=== PATIENT | male | born 1960 | race Asian ===

== ENCOUNTER 2021-03-07 21:15 | Inpatient (IN) | payer OTHER ==
[~2021-03-07] VITALS: Ht 175.3 cm; Wt 77.0 kg
[2021-03-07] MEDS ORDERED: CloNIDine HCL 0.2 MG TABLET PO ONE (22:30)
[2021-03-07 22:38] LABS: BASOPHILS % (AUTO) 0.4 % (0.0-2.0); EOSINOPHILS % (AUTO) 0.6 % (1.0-6.0); HEMATOCRIT 37.9 % (41-53); HEMOGLOBIN 12.4 g/dL (13.5-17.5); LYMPHOCYTES # (AUTO) 1.3 K/uL (1.0-4.8); LYMPHOCYTES % (AUTO) 13.5 % (22.0-44.0); MEAN CORPUSCULAR HEMOGLOBIN 28.4 pg (26.0-34.0); MEAN CORPUSCULAR HGB CONC 32.6 G/dL (31.0-37.0); MEAN CORPUSCULAR VOLUME 87 fL (80-100); MONOCYTES # (AUTO) 0.7 K/uL (0.1-1.0); MONOCYTES % (AUTO) 7.1 % (2.0-9.0); NEUTROPHILS # (AUTO) 7.7 K/uL (1.8-7.7); NEUTROPHILS % (AUTO) 78.4 % (40.0-70.0); PLATELET COUNT (AUTO) 381 K/uL (150-450); RED BLOOD CELL COUNT(AUTO) 4.35 MIL/uL (4.50-5.90); RED CELL DISTRIBUTION WIDTH 14.1 % (11.5-14.5)
[2021-03-07 22:39] LABS: COVID AG,FIA SOURCE NASOPHARYNGEAL
[2021-03-07 22:54] LABS: ANION GAP 8 mmol/L (8-16); CALCIUM, TOTAL 8.7 mg/dL (8.8-10.5); CARBON DIOXIDE 27 mmol/L (22-29); CHLORIDE 104 mmol/L (98-107); CREATININE 1.06 mg/dL (0.60-1.30); GLOMERULAR FILTR. RATE CALC > 60 mL/min (>60); GLUCOSE,RANDOM 95 mg/dL (70-110); POTASSIUM 4.4 mmol/L (3.5-5.1); SODIUM SERUM 139 mmol/L (136-145); UREA NITROGEN, BLOOD 18 mg/dL (7-18)
[2021-03-07 22:59] LABS: ALANINE AMINOTRANSFERASE 88 U/L (12-78); ALBUMIN 2.7 g/dL (3.4-5.0); ALKALINE PHOSPHATASE 89 U/L (46-116); ASPARTATE AMINOTRANSFERASE 68 U/L (15-37); BILIRUBIN,TOTAL 0.4 mg/dL (0.1-1.0); TOTAL PROTEIN, SERUM 8.7 g/dL (6.4-8.2)
[2021-03-08] VITALS (7 sets, daily range): BP systolic 105–138; BP diastolic 51–94
[2021-03-08] MEDS ORDERED: CARVEDILOL 3.125 MG TABLET PO SCH (00:30)
[2021-03-08] MEDS ORDERED: ATORVASTATIN CALCIUM 40 MG TABLET PO ONE (00:30)
[2021-03-08] MEDS ORDERED: FUROSEMIDE 20 MG/2 ML VIAL IVP ONE (00:30)
[2021-03-08] MEDS ORDERED: ASPIRIN 81 MG CHEWABLE TABLET PO ONE (00:30)
[2021-03-08] MEDS ORDERED: ONDANSETRON HCL 4 MG/2 ML VIAL IVP PRN (00:30)
[2021-03-08 05:41] LABS: AMPHET/METH SCREEN,URINE NEGATIVE (NEGATIVE); BARBITURATE SCREEN, URINE NEGATIVE (NEGATIVE); BENZODIAZEPINES SCREEN,URINE POSITIVE (NEGATIVE); CANNABINOID SCREEN,URINE NEGATIVE (NEGATIVE); COCAINE SCREEN,URINE NEGATIVE (NEGATIVE); METHADONE SCREEN, URINE NEGATIVE (NEGATIVE); OPIATE SCREEN,URINE NEGATIVE (NEGATIVE)
[2021-03-08 05:42] LABS: PHENCYCLIDINE SCREEN,URINE NEGATIVE (NEGATIVE)
[2021-03-08] MEDS: ASPIRIN 81 MG CHEWABLE TABLET PO SCH (08:08)
[2021-03-08] MEDS: ATORVASTATIN CALCIUM 20 MG TABLET PO SCH (08:08)
[2021-03-08] MEDS: HEPARIN SODIUM,PORCINE 5,000 UNITS/ML VIAL SQ SCH ×3 (08:08→23:38)
[2021-03-08] MEDS: CARVEDILOL 6.25 MG TABLET PO SCH ×2 (11:30→20:24)
[2021-03-08] MEDS: GABAPENTIN 300 MG CAPSULE PO SCH (21:55)
[2021-03-09 04:59] VITALS: BP 97/60
[2021-03-09 07:42] VITALS: BP 150/78
[2021-03-09] MEDS: HEPARIN SODIUM,PORCINE 5,000 UNITS/ML VIAL SQ SCH ×3 (08:13→23:24)
[2021-03-09] MEDS: ATORVASTATIN CALCIUM 20 MG TABLET PO SCH (08:14)
[2021-03-09] MEDS: GABAPENTIN 300 MG CAPSULE PO SCH (08:14)
[2021-03-09] MEDS: CARVEDILOL 6.25 MG TABLET PO SCH ×2 (08:14→20:32)
[2021-03-09] MEDS: ASPIRIN 81 MG CHEWABLE TABLET PO SCH (08:14)
[2021-03-09 10:29] VITALS: BP 142/82
[2021-03-09 15:29] VITALS: BP 148/78
[2021-03-09 16:21] LABS: EOSINOPHILS % (AUTO) 1.9 % (1.0-6.0); HEMATOCRIT 39.8 % (41-53); LYMPHOCYTES # (AUTO) 1.4 K/uL (1.0-4.8); LYMPHOCYTES % (AUTO) 17.8 % (22.0-44.0); MEAN CORPUSCULAR HEMOGLOBIN 28.5 pg (26.0-34.0); MEAN CORPUSCULAR HGB CONC 32.6 G/dL (31.0-37.0); MEAN CORPUSCULAR VOLUME 87 fL (80-100); MONOCYTES # (AUTO) 0.7 K/uL (0.1-1.0); MONOCYTES % (AUTO) 8.7 % (2.0-9.0); NEUTROPHILS # (AUTO) 5.7 K/uL (1.8-7.7); NEUTROPHILS % (AUTO) 70.6 % (40.0-70.0); PLATELET COUNT (AUTO) 374 K/uL (150-450); RED BLOOD CELL COUNT(AUTO) 4.56 MIL/uL (4.50-5.90); RED CELL DISTRIBUTION WIDTH 14.3 % (11.5-14.5)
[2021-03-09 16:32] LABS: ANION GAP -2 mmol/L (8-16); CALCIUM, TOTAL 8.8 mg/dL (8.8-10.5); CARBON DIOXIDE 25 mmol/L (22-29); CHLORIDE 106 mmol/L (98-107); GLOMERULAR FILTR. RATE CALC > 60 mL/min (>60); GLUCOSE,RANDOM 136 mg/dL (70-110); POTASSIUM 4.1 mmol/L (3.5-5.1); SODIUM SERUM 129 mmol/L (136-145); UREA NITROGEN, BLOOD 22 mg/dL (7-18)
[2021-03-09] MEDS: LISINOPRIL 5 MG TABLET PO SCH (16:32)
[2021-03-09] MEDS: FUROSEMIDE 20 MG/2 ML VIAL IVP SCH ×2 (16:32→20:32)
[2021-03-09 19:38] VITALS: BP 137/89
[2021-03-09] MEDS: ACETAMINOPHEN 325 MG TABLET PO PRN (20:32)
[2021-03-09] MEDS: SPIRONOLACTONE 25 MG TABLET PO SCH (20:32)
[2021-03-09 23:45] VITALS: BP 118/70
[2021-03-10 04:41] VITALS: BP 137/92
[2021-03-10 05:56] LABS: BASOPHILS % (AUTO) 0.8 % (0.0-2.0); EOSINOPHILS % (AUTO) 2.1 % (1.0-6.0); HEMATOCRIT 39.6 % (41-53); HEMOGLOBIN 12.6 g/dL (13.5-17.5); LYMPHOCYTES # (AUTO) 1.9 K/uL (1.0-4.8); LYMPHOCYTES % (AUTO) 22.4 % (22.0-44.0); MEAN CORPUSCULAR HGB CONC 31.9 G/dL (31.0-37.0); MEAN CORPUSCULAR VOLUME 88 fL (80-100); MONOCYTES # (AUTO) 0.7 K/uL (0.1-1.0); MONOCYTES % (AUTO) 8.1 % (2.0-9.0); NEUTROPHILS # (AUTO) 5.7 K/uL (1.8-7.7); NEUTROPHILS % (AUTO) 66.6 % (40.0-70.0); PLATELET COUNT (AUTO) 375 K/uL (150-450); RED BLOOD CELL COUNT(AUTO) 4.51 MIL/uL (4.50-5.90); RED CELL DISTRIBUTION WIDTH 14.1 % (11.5-14.5)
[2021-03-10 06:22] LABS: ANION GAP 2 mmol/L (8-16); CALCIUM, TOTAL 8.5 mg/dL (8.8-10.5); CARBON DIOXIDE 27 mmol/L (22-29); CHLORIDE 103 mmol/L (98-107); GLOMERULAR FILTR. RATE CALC > 60 mL/min (>60); GLUCOSE,RANDOM 92 mg/dL (70-110); POTASSIUM 3.7 mmol/L (3.5-5.1); SODIUM SERUM 132 mmol/L (136-145); UREA NITROGEN, BLOOD 19 mg/dL (7-18)
[2021-03-10 07:18] VITALS: BP 148/86
[2021-03-10] MEDS: CARVEDILOL 6.25 MG TABLET PO SCH ×2 (07:53→20:31)
[2021-03-10] MEDS: ATORVASTATIN CALCIUM 20 MG TABLET PO SCH (07:53)
[2021-03-10] MEDS: GABAPENTIN 300 MG CAPSULE PO SCH (07:53)
[2021-03-10] MEDS: LISINOPRIL 5 MG TABLET PO SCH (07:53)
[2021-03-10] MEDS: ASPIRIN 81 MG CHEWABLE TABLET PO SCH (07:54)
[2021-03-10] MEDS: HEPARIN SODIUM,PORCINE 5,000 UNITS/ML VIAL SQ SCH ×3 (07:54→23:16)
[2021-03-10] MEDS: SPIRONOLACTONE 25 MG TABLET PO SCH ×2 (07:54→20:35)
[2021-03-10] MEDS: FUROSEMIDE 20 MG/2 ML VIAL IVP SCH ×2 (07:54→20:35)
[2021-03-10 11:39] VITALS: BP 139/82
[2021-03-10 16:20] VITALS: BP 142/90
[2021-03-10 19:51] VITALS: BP 125/76
[2021-03-10] MEDS: ACETAMINOPHEN 325 MG TABLET PO PRN (20:33)
[2021-03-10] MEDS: MELATONIN 3 MG TABLET PO PRN (22:02)
[2021-03-10 23:38] VITALS: BP 121/68
[2021-03-11 07:40] VITALS: BP 127/72
[2021-03-11] MEDS: ATORVASTATIN CALCIUM 20 MG TABLET PO SCH (08:03)
[2021-03-11] MEDS: ASPIRIN 81 MG CHEWABLE TABLET PO SCH (08:03)
[2021-03-11] MEDS: HEPARIN SODIUM,PORCINE 5,000 UNITS/ML VIAL SQ SCH ×2 (08:03→17:15)
[2021-03-11] MEDS: LISINOPRIL 5 MG TABLET PO SCH (08:03)
[2021-03-11] MEDS: FUROSEMIDE 20 MG/2 ML VIAL IVP SCH ×2 (08:03→20:37)
[2021-03-11] MEDS: GABAPENTIN 300 MG CAPSULE PO SCH (08:05)
[2021-03-11] MEDS: SPIRONOLACTONE 25 MG TABLET PO SCH ×2 (08:05→20:38)
[2021-03-11] MEDS: CARVEDILOL 6.25 MG TABLET PO SCH ×2 (08:06→20:38)
[2021-03-11] MEDS ORDERED: BUPRENORPHINE HCL/NALOXONE HCL 2-0.5 MG SUBLINGUAL TABLET SL SCH (09:45)
[2021-03-11 11:04] VITALS: BP 149/68
[2021-03-11 15:10] VITALS: BP 121/67
[2021-03-11 19:51] VITALS: BP 145/82
[2021-03-11] MEDS: MELATONIN 3 MG TABLET PO PRN (22:38)
[2021-03-11 23:33] VITALS: BP 116/65
[2021-03-12] MEDS: HEPARIN SODIUM,PORCINE 5,000 UNITS/ML VIAL SQ SCH ×3 (00:12→16:46)
[2021-03-12 05:01] VITALS: BP 138/88
[2021-03-12 07:14] VITALS: BP 143/88
[2021-03-12 08:56] VITALS: BP 143/88
[2021-03-12] MEDS: GABAPENTIN 300 MG CAPSULE PO SCH (09:00)
[2021-03-12] MEDS: FUROSEMIDE 20 MG/2 ML VIAL IVP SCH ×2 (10:32→20:06)
[2021-03-12] MEDS: SPIRONOLACTONE 25 MG TABLET PO SCH ×2 (10:35→20:06)
[2021-03-12] MEDS: ASPIRIN 81 MG CHEWABLE TABLET PO SCH (10:36)
[2021-03-12] MEDS: CARVEDILOL 6.25 MG TABLET PO SCH ×2 (10:36→20:05)
[2021-03-12] MEDS: ATORVASTATIN CALCIUM 20 MG TABLET PO SCH (10:37)
[2021-03-12] MEDS: LISINOPRIL 5 MG TABLET PO SCH (10:38)
[2021-03-12 11:31] VITALS: BP 152/86
[2021-03-12 16:24] VITALS: BP 147/86
[2021-03-12] MEDS ORDERED: ASPI81TA87 PO (17:52)
[2021-03-12] MEDS ORDERED: ATOR20TA86 PO (17:53)
[2021-03-12] MEDS ORDERED: CARV6 PO (17:55)
[2021-03-12] MEDS ORDERED: GABA-1181 PO (17:56)
[2021-03-12] MEDS ORDERED: FURO20 PO (17:56)
[2021-03-12] MEDS ORDERED: SPIR-37 PO (17:57)
[2021-03-12] MEDS ORDERED: LISI-892 PO (17:57)
[2021-03-12 19:10] VITALS: BP 143/75
[2021-03-12] MEDS ORDERED: GABAPENTIN 300 MG CAPSULE PO SCH (21:00)
[2021-03-13 00:20] VITALS: BP 127/71
[2021-03-13] MEDS: HEPARIN SODIUM,PORCINE 5,000 UNITS/ML VIAL SQ SCH ×2 (00:25→08:28)
[2021-03-13 03:10] VITALS: BP 138/76
[2021-03-13 07:25] VITALS: BP 128/69
[2021-03-13] MEDS: ASPIRIN 81 MG CHEWABLE TABLET PO SCH (08:27)
[2021-03-13] MEDS: ATORVASTATIN CALCIUM 20 MG TABLET PO SCH (08:27)
[2021-03-13] MEDS: SPIRONOLACTONE 25 MG TABLET PO SCH (08:27)
[2021-03-13] MEDS: LISINOPRIL 5 MG TABLET PO SCH (08:27)
[2021-03-13] MEDS: CARVEDILOL 6.25 MG TABLET PO SCH (08:27)
[2021-03-13] MEDS: FUROSEMIDE 20 MG/2 ML VIAL IVP SCH (08:28)
[2021-03-13] MEDS ORDERED: FUROSEMIDE 20 MG TABLET PO SCH (21:00)
[2021-03-14 04:12] LABS: GLUCOMETER DEV NAME(LOC) 5S.1; GLUCOSE,POINT OF CARE 108 MG/DL (70-110)
== END 2021-03-13 15:25 | DRG 917 ==
LOC: EDBD 21:18 → EMS 21:18 → 5S 03-08 00:24
PROVIDERS: ADMIT Internal Medicine; ATTEND Internal Medicine
DX: T40.411A Poisoning by fentanyl or fentanyl analogs, accidental (unintentional), initial encounter (principal); G92 Toxic encephalopathy; I50.23 Acute on chronic systolic (congestive) heart failure; E87.1 Hypo-osmolality and hyponatremia; I42.0 Dilated cardiomyopathy; I11.0 Hypertensive heart disease with heart failure; D64.9 Anemia, unspecified; F19.10 Other psychoactive substance abuse, uncomplicated; F17.210 Nicotine dependence, cigarettes, uncomplicated; F11.10 Opioid abuse, uncomplicated; Z79.899 Other long term (current) drug therapy; Y92.89 Other specified places as the place of occurrence of the external cause; Z20.822 Contact with and (suspected) exposure to COVID-19
CPT/HCPCS: 71045; 80048; 80053; 82962; 83735; 83880; 84484; 85025; 93005; 93306; 99285; G0480; J1644; J1940; 36415-L1; 36415-TC